=== PATIENT | female | born 1955 | race Hispanic/Latino ===

== ENCOUNTER 2017-02-05 13:51 | Inpatient (IN) | payer MEDICARE, OTHER ==
[2017-02-05 13:59] VITALS: BMI 39.9
[2017-02-05 15:43] LABS: ADD MANUAL DIFF? NO
[2017-02-05 15:48] LABS: BASO # 0.05 K/mm3 (0.0-2.0); BASO % 0.6 % (0.0-3.0); EOS # 0.2 (0.0-0.7); EOS % 1.9 % (1.5-5.0); GRAN # 6.34 (1.4-6.5); GRAN % 72.2 % (50.0-68.0); HEMATOCRIT 41.9 % (36.0-48.0); LYMPH # 1.8 (1.2-3.4); LYMPH % 20.4 % (22.0-35.0); MEAN CELL VOLUME 91.9 fL (80.0-105.0); MEAN CORPUSCULAR HEMOGLOBIN 31.1 pg (25.0-35.0); MEAN CORPUSCULAR HGB CONC 33.9 g/dl (31.0-37.0); MEAN PLATELET VOLUME 10.2 fl (7.0-11.0); MONO # 0.4 (0.1-0.6); MONO % 4.9 % (1.0-6.0); PLATELET COUNT 211 10^3/uL (120.0-450.0); RED CELL DISTRIBUTION WIDTH 13.4 % (11.5-14.5); WHITE BLOOD COUNT 8.8 10^3/ul (4.5-11.0)
--- NOTE | 2017-02-05 16:01 | CT ---
PROCEDURE: CT HEAD WITHOUT CONTRAST. HISTORY: headache/AMS COMPARISON: 05/06/2013 TECHNIQUE: Axial computed tomography images were obtained through the head/brain without intravenous contrast. Radiation dose: Total exam DLP = 677 mGy-cm. This CT exam was performed using one or more of the following dose reduction techniques: Automated exposure control, adjustment of the mA and/or kV according to patient size, and/or use of iterative reconstruction technique. FINDINGS: HEMORRHAGE: No intracranial hemorrhage. BRAIN: No mass effect or edema. No atrophy or chronic microvascular ischemic changes. VENTRICLES: Unremarkable. No hydrocephalus. CALVARIUM: Unremarkable. PARANASAL SINUSES: Unremarkable as visualized. No significant inflammatory changes. MASTOID AIR CELLS: Unremarkable as visualized. No inflammatory changes. OTHER FINDINGS: None. IMPRESSION: Normal CT of the Head.
--- NOTE | 2017-02-05 16:20 | RAD ---
PROCEDURE: CHEST RADIOGRAPH, 1 VIEW HISTORY: AMS COMPARISON: 11/16/2012 FINDINGS: LUNGS: Clear. PLEURA: No pneumothorax or pleural fluid seen. CARDIOVASCULAR: Normal. OSSEOUS STRUCTURES: No significant abnormalities. VISUALIZED UPPER ABDOMEN: Normal. OTHER FINDINGS: None. IMPRESSION: No active disease.
[2017-02-05 16:53] LABS: ALB/GLOB RATIO 1.4 (1.1-1.8); ALKALINE PHOSPHATASE 85 U/L (38-133); ALT/SGPT 45 U/L (7-56); AST/SGOT 29 U/L (15-39); BILIRUBIN,TOTAL 0.5 mg/dL (0.2-1.3); BLOOD UREA NITROGEN 13 mg/dL (7-21); CALCIUM 9.8 mg/dL (8.4-10.5); CARBON DIOXIDE 30 mmol/L (21-33); CHLORIDE 101 mmol/L (98-107); GFR AFRICAN-AMERICAN > 60; GLUCOSE,RANDOM 112 mg/dL (70-110); POTASSIUM 4.2 mmol/L (3.6-5.0); SODIUM 141 mmol/L (132-148); TOTAL PROTEIN 7.1 g/dL (5.8-8.3)
[2017-02-05 17:17] LABS: URINE APPEARANCE CLEAR (CLEAR); URINE BILIRUBIN NEGATIVE (NEGATIVE); URINE BLOOD TRACE-LYSED (NEGATIVE); URINE COLOR YELLOW (YELLOW); URINE GLUCOSE (UA) NEGATIVE (NEGATIVE); URINE KETONE NEGATIVE (NEGATIVE); URINE LEUKOCYTE ESTERASE NEGATIVE Leu/uL (NEGATIVE); URINE PROTEIN NEGATIVE mg/dL (<30 mg/dL); URINE UROBILINOGEN 0.2 E.U./dL (<1 E.U./dL)
[2017-02-05 17:21] LABS: URINE BACTERIA SMALL (NEG); URINE WBC 0 - 2 /hpf (0-6)
--- NOTE | 2017-02-05 18:47 | CARD ---
APPROVED REPORT EKG Measurement Heart [id number] <Conclusion> Sinus tachycardia Low voltage QRS Inferior infarct, age undetermined Abnormal ECG
--- NOTE | 2017-02-05 20:16 | ED PDOC ---
Arrival/HPI - General Historian: Patient, Family <Sharita Locke - Last Filed: 02/05/17 20:13> <Fidencio Peralta - Last Filed: 02/05/17 20:35> - General Chief Complaint: Psychiatric Evaluation Time Seen by Provider: 02/05/17 14:44 - History of Present Illness Narrative History of Present Illness (Text): 02/05/17 20:13 61yr old female with previous psychiatric history presents today with an episode of psychosis/altered mental status. Patient's sisters state that she was with them and suddenly couldn't remember their name and was off into a stair. Family members state that the patient had done this once before about 3 years ago and was treated in the [facility] for psychiatric issue. Family states that the patient is going through a lot of stress and has recently lost her mother for which she was very close to. Patient states she is taking her medications as prescribed. Patient states she doesn't know what happened. There was no loss of consciousness. Patient denies chest pain or shortness of breath. Denies abdominal pain. No nausea or vomiting. Complaining of a slight headache. (Sharita Locke) Past Medical History - Provider Review Nursing Documentation Reviewed: Yes - Travel History Have you recently traveled outside [place] w/in the past 3 mons?: No - Infectious Disease Hx of Infectious Diseases: None - Tetanus Immunization Tetanus Immunization: Unknown - Cardiac Hx Hypertension: Yes - Endocrine/Metabolic Hx Hypothyroidism: Yes - Musculoskeletal/Rheumatological Hx Arthritis: Yes - Psychiatric Hx Anxiety: Yes Hx Depression: Yes Hx Psychosis: Yes Hx Substance Use: No - Past Surgical History Past Surgical History: Non-Contributing - Surgical History Hx Cholecystectomy: Yes Hx Orthopedic Surgery: Yes (KNEE) - Suicidal Assessment Feels Threatened In Home Enviroment: No <Sharita Locke - Last Filed: 02/05/17 20:13> Family/Social History - Physician Review Nursing Documentation Reviewed: Yes Family/Social History: Unknown Family HX Smoking Status: Smoker Hx Alcohol Use: No Hx Substance Use: No Hx Substance Use Treatment: No <Sharita Locke - Last Filed: 02/05/17 20:13> Allergies/Home Meds <Sharita Locke - Last Filed: 02/05/17 20:13> <Fidencio Peralta - Last Filed: 02/05/17 20:35> Allergies/Adverse Reactions: Allergies aspirin Allergy (Verified 02/05/17 14:01) RASH Home Medications: Home Meds Medication Instructions Recorded Confirmed Diltiazem Hydrochloride [Cardizem 120 mg PO BID 11/16/12 11/16/12 Cd] Fluoxetine Hydrochloride [Prozac] 40 mg PO DAILY 11/16/12 11/16/12 Atorvastatin Calcium [Lipitor] 10 mg PO DAILY 11/18/12 11/18/12 Levothyroxine Sodium 0.125 mg PO DAILY 11/18/12 11/18/12 [Levothyroxine] Losartan [Cozaar] 50 mg PO DAILY 11/18/12 11/18/12 Alprazolam [Xanax] 0.5 mg PO BID 05/06/13 05/06/13 Atenolol 50 mg PO DAILY 05/06/13 05/06/13 Furosemide [Lasix] 40 mg PO DAILY 05/06/13 05/06/13 Lisinopril 20 mg PO DAILY 05/06/13 05/06/13 Review of Systems - Review of Systems Constitutional: absent: Fatigue, Fevers Respiratory: absent: SOB, Cough Cardiovascular: absent: Chest Pain, Palpitations Gastrointestinal: absent: Abdominal Pain, Diarrhea, Nausea, Vomiting Genitourinary Female: absent: Dysuria Musculoskeletal: absent: Arthralgias Psychiatric: Anxiety, Depression <Azoia,Sharita Lewis - Last Filed: 02/05/17 20:13> Physical Exam Vital Signs Reviewed: Yes Temperature: Afebrile Blood Pressure: Normal Pulse: Tachycardic Respiratory Rate: Normal Appearance: Positive for: Well-Appearing, Non-Toxic, Comfortable Pain Distress: None Mental Status: Positive for: Alert and Oriented X 3 - Systems Exam Head: Present: Atraumatic Pupils: Present: PERRL Extroacular Muscles: Present: EOMI Conjunctiva: Present: Normal Mouth: Present: Moist Mucous Membranes Neck: Present: Normal Range of Motion Respiratory/Chest: Present: Clear to Auscultation, Good Air Exchange. No: Respiratory Distress, Accessory Muscle Use Cardiovascular: Present: Regular Rate and Rhythm, Normal S1, S2. No: Murmurs Abdomen: No: Tenderness Upper Extremity: Present: Normal ROM Neurological: Present: GCS=15, Speech Normal, Motor Func Grossly Intact, Normal Sensory Function, Gait Normal Skin: Present: Warm, Dry, Normal Color. No: Rashes Psychiatric: Present: Alert, Oriented x 3 <Sharita Locke - Last Filed: 02/05/17 20:13> Vital Signs Temp Pulse Resp BP Pulse Ox 02/05/17 18:25 98 H 18 128/74 95 02/05/17 17:16 108 H 20 117/90 96 02/05/17 17:09 107 H 117 H 96 02/05/17 15:27 16 117/78 95 02/05/17 15:19 98 H 18 115/69 95 02/05/17 14:01 98.3 F 106 H 18 117/71 95 02/05/17 13:51 98.3 F 106 H 18 117/71 96 Medical Decision Making <Sharita Locke - Last Filed: 02/05/17 20:13> <Fidencio Peralta - Last Filed: 02/05/17 20:35> ED Course and Treatment: 02/05/17 20:17 Patient is nontoxic well-appearing in no distress vital signs are stable. pt with period of AMS. now alert oriented. pt states she has been extremely depressed lately. Patient neurologically intact. Prior history of similar event related to psychosis. Patient very tearful in the emergency room crying that she misses her mother. CBC WNL CMP WNL Tylenol WNL Salicylate WNL Alcohol level WNL CT head: wnl Urine drug screen wnl UA; wnl cxr: wnl ekg sinus tachycardia at 106 bpm normal axis normal intervals no ST elevations pt is medically cleared for PES evaluation Patient was seen and evaluated by PES screener: Marla. will admit the patient to psychiatric floor for depression, anxiety Patient sign voluntarily to the psychiatric floor Impression; depression Admit to behavioral health floor (Sharita Locke) - Lab Interpretations Lab Results: 02/05/17 15:25 02/05/17 15:25 Lab Results 02/05/17 17:00: Urine Color Yellow, Urine Appearance Clear, Urine pH 6.0, Ur Specific Aurora <= 1.005, Urine Protein Negative, Urine Glucose (UA) Negative, Urine Ketones Negative, Urine Blood Trace-lysed H, Urine Nitrate Negative, Urine Bilirubin Negative, Urine Urobilinogen 0.2, Ur Leukocyte Esterase Negative , Urine RBC 1 - 3, Urine WBC 0 - 2, Ur Epithelial Cells 3 - 4, Urine Bacteria Small, Urine Opiates Screen Negative, Urine Methadone Screen Negative, Ur Barbiturates Screen Negative, Ur Phencyclidine Scrn Negative, Ur Amphetamines Screen Negative, U Benzodiazepines Scrn Positive H, U Oth Cocaine Metabols Negative, U Cannabinoids Screen Negative 02/05/17 15:25: WBC 8.8, RBC 4.56, Hgb 14.2, Hct 41.9, MCV 91.9, MCH 31.1, MCHC 33.9, RDW 13.4, Plt Count 211, MPV 10.2, Gran % 72.2 H, Lymph % (Auto) 20.4 L, Childress % (Auto) 4.9, Eos % (Auto) 1.9, Baso % (Auto) 0.6, Gran # 6.34, Lymph # 1.8 , Childress # 0.4, Eos # 0.2, Baso # 0.05, Sodium 141, Potassium 4.2, Chloride 101, Carbon Dioxide 30, Anion Gap 14, BUN 13, Creatinine 1.0, Est GFR ( Amer) > 60, Est GFR (Non-Af Amer) 57, Random Glucose 112 H, Calcium 9.8, Total Bilirubin 0.5, AST 29, ALT 45, Alkaline Phosphatase 85, Total Protein 7.1, Albumin 4.1, Globulin 3.0, Albumin/Globulin Ratio 1.4, Salicylates < 1 L, Acetaminophen < 10.0 L, Alcohol, Quantitative < 10 - RAD Interpretation Radiology Orders: 02/05/17 14:55 HEAD W/O CONTRAST [CT] Stat CHEST ONE VIEW [RAD] Stat - Medication Orders Current Medication Orders: Discontinued Medications Alprazolam (Xanax) 0.25 mg PO STAT STA PRN Reason: Protocol Stop: 02/05/17 17:30 Last Admin: 02/05/17 17:37 Dose: 0.25 MG Behavioural Document 02/05/17 17:37 [facility] (Rec: 02/05/17 17:37 [facility] [id number]) Maintenance Maintenance Dose No Nonmedicinal Nonmedicinal Interventions Therapeutic Communication Behavior Behavior for Medication: Anxiety - PA / LOGISTICS MANAGER / Resident Statement AUGUSTUS has reviewed & agrees with the documentation as recorded. AUGUSTUS has examined the patient and agrees with the treatment plan. <Fidencio Peralta - Last Filed: 02/05/17 20:35> Disposition/Present on Arrival - Present on Arrival Any Indicators Present on Arrival: No History of DVT/PE: No History of Uncontrolled Diabetes: No Urinary Catheter: No History of Decub. Ulcer: No History Surgical Site Infection Following: None - Disposition Have Diagnosis and Disposition been Completed?: Yes Disposition Time: 20:33 Patient Plan: Admission <Sharita Locke - Last Filed: 02/05/17 20:13> <Fidencio Peralta - Last Filed: 02/05/17 20:35> - Disposition Diagnosis: Depression Disposition: HOSPITALIZED Condition: FAIR Referrals: Pat Sheehan DO [Primary Care Provider] - Follow up with primary
[2017-02-05] MEDS ORDERED: Alum-Mag Hydrox-Simethicone Susp (30 mL) PO PRN (21:42)
[2017-02-05] MEDS ORDERED: Magnesium Hydroxide Susp 30 ml UD PO PRN (21:42)
[2017-02-06 01:34] VITALS: O2SAT 100
[2017-02-06] MEDS ORDERED: Pantoprazole 40 mg EC Tab PO SCH (07:30)
[2017-02-06] MEDS ORDERED: Levothyroxine 150 MCG TAB PO SCH (07:30)
[2017-02-06] MEDS ORDERED: FLUoxetine Elix 20 MG/5 ML PO SCH (08:00)
[2017-02-06] MEDS: diltiaZEM 120 mg/24 Hours CD Cap PO SCH (09:30)
[2017-02-06 11:09] LABS: CHOLESTEROL 164 mg/dL (130-200); GLUCOSE,FASTING 159 mg/dL (65-110)
[2017-02-06 11:25] LABS: FREE T4 1.24 ng/dL (0.78-2.19)
[2017-02-06 11:39] LABS: THYROID STIMULATING HORMONE 0.45 mIU/mL (0.46-4.68)
--- NOTE | 2017-02-06 13:00 | CON ---
DATE: 02/06/2017 CHIEF COMPLAINT: Transient altered confusion. HISTORY OF PRESENT ILLNESS: This is a 61-year-old woman with past medical history of anxiety and dep ression who has a history of psychosis in the past, has had a recent loss of her mother and according to the family members had been under a lot of stress and had a transient loss of where she was and c ould not remember the name of family members and was staring off in the chair. Currently, she is at her baseline. CT head showed no acute intracranial abnormality, no loss of consciousness. Denies an y change in sense of vision, taste or smell. Denies any headache at this time. No focal weakness in the extremities. Labs were pretty much unremarkable except for TSH is low. She has a U-tox positive for benzos. She is on Cymbalta 30 mg p.o. b.i.d. for depression and also on Seroquel for insomnia 25 mg p.o. at b edtime. She has been having poor sleep over the past few weeks. PAST MEDICAL HISTORY: Depression, anxiety, history of hypertension, hypothyroidism, history of kateryna cystectomy, history orthopedic surgery of her knee. REVIEW OF SYSTEMS: A 14-point review of systems is negative except for the HPI. MEDICATIONS: Reviewed via nurse's reconciliation sheet. ALLERGIES: ALLERGIC TO ASPIRIN. FAMILY HISTORY: Noncontributory. SOCIAL HISTORY: No illicit drug use, smoking or ETOH abuse. PHYSICAL EXAMINATION: VITAL SIGNS: Temperature 97.3, pulse rate of 102, blood pressure 108/61, respiratory rate of 20, oxy gen saturation 100% on room air. GENERAL: The patient is sitting up in bed in no acute distress. HEENT: Atraumatic, normocephalic. PERRLA. Extraocular muscles intact. NECK: Supple, no JVD, no adenopathy noted. LUNGS: Clear to auscultation. No adventitious sounds. HEART: S1, S2, normal rate and rhythm. No murmurs, rubs, or gallops. ABDOMEN: Soft, nontender, nondistended. Bowel sounds present. EXTREMITIES: No clubbing, no cyanosis. Peripheral pulses 2+ bilaterally. NEUROLOGIC: The patient has a flat affect. She is alert, oriented to person, place, month and year. Speech is fluent, without any errors. Cranial nerves II through XII are intact. MOTOR: Moves all extremities equally. Toes downgoing bilaterally. Normal tone, normal bulk of muscle. No pronator drift seen. DTRs are 2+ throughout and 1 at the ankl es. SENSORY: Light touch, pinprick, proprioception, vibration intact. COORDINATION: Ushrli-dg-tyky intact. Gait is deferred for now. LABORATORY DATA: Sodium is 141, potassium 4.2, chloride 101, carbon dioxide 30, BUN of 13, creatinin e 1. Random glucose 112. ASSESSMENT AND PLAN: This is a 61-year-old woman with history of psychosis in the past, admitted to the psychiatric unit for anxiety and depression from recent loss of her mother. Has been having poor sleep over time. Had transient altered mental status where she could not remember family members' n bijal and was staring off in the chair. She also had a flat affect and she is being managed for depre ssion and anxiety, currently in the psychiatric unit. there is a transient reduction in her sy stolic blood pressure over time. Her altered mental status could be transient stress induced affect with superimposed underlying transient cerebral hypoperfusion to the brain causing her change in ment al status. Currently, she is back to her baseline. She is depressed and anxious. At this time, mariah mmend: 1. Continue with Xanax for underlying anxiety and Cymbalta 30 mg p.o. daily for depression and Seroq uel 25 mg p.o. at bedtime for insomnia. Her CT head showed no acute intracranial abnormality. Ana Luisa nue current present psychiatric management. No further neurological workup needed at this time. Basim l sign off. Bartolome Macedo MD cc: [id number] TT: 02/06/2017 12:59:38 Confirmation # [id number] Dictation # [id number] feroz
[2017-02-06 13:50] LABS: FREE T4 1.32 ng/dL (0.78-2.19); T4 11.2 ug/dL (5.5-11.0)
--- NOTE | 2017-02-06 13:55 | CON ---
DATE: 02/06/2017 HISTORY OF PRESENT ILLNESS: The patient is seen in room 515, bed 1. The patient is admitted through the Emergency Room on 02/05/2017 for episode of psychosis, depression, altered mental status. Adalberto abarca to the ER triage and ER evaluation note, patient had a sudden onset of forgetfulness and unable to remember the names of the sister. According to the family members, patient had these similar episod es a few years ago, was treated in [facility] for above issues. The patient's 13-sys tem review was positive for stress, positive for forgetfulness, positive for psychosis, positive for altered mental status. The patient stated that she recently lost her mother. The patient appears to be compliant with medication. The patient has no recollection of the events which happened yesterda y. The patient also was noted to have an erratic behavior, hyperventilating. The patient came to the Em ergency Room by EMS [facility]. REVIEW OF SYSTEMS: A 13-system review was done. Pertinent positive and negative dictated above. CODE STATUS: Full code. LIVING WILL AND ADVANCED DIRECTIVE: None. ALLERGIES: ASPIRIN. HEIGHT: 5 feet 5 inches. WEIGHT: 240 pounds. BODY MASS INDEX: 40. HOME MEDICATIONS: 1. Motrin 800 t.i.d. p.r.n. 2. Synthroid 150 mcg. 3. Os-Victor Manuel with vitamin D twice a day. 4. Ambien 10 mg at bedtime p.r.n. 5. Xanax 0.5 or 1 mg t.i.d. p.r.n. 6. Lisinopril 20 mg daily. 7. Cardizem-CD 240 or 120 mg. 8. Lipitor 10 mg daily. 9. Cymbalta 30 mg twice a day. SOCIAL HISTORY: Positive for smoking. Denies alcohol. Denies communicable transmissible disease. Denies hepatitis A, B, C. Denies HIV. Denies any high risk sexual behavior. Denies any communicabl e transmissible disease. MENSTRUAL HISTORY: Postmenopausal. The patient denies being . FAMILY HISTORY: Positive for father dying of lung cancer, mother dying of kidney cancer. PAST MEDICAL AND SURGICAL HISTORY: History of hypothyroidism, history of hypertension, history of pr ediabetes, history of obesity, history of cholecystectomy, history of knee surgeries, history of elma st cyst surgeries, history of anxiety disorder, history of dyslipidemia, history of depression, histo ry of anxiety, history of atypical chest pain, history of hypertensive disease, history of insomnia, history of obesity. The patient's past medical history is also significant for hypertension, hypothy roidism, history of arthritis, history of anxiety, depression, psychosis; history of cholecystectomy, history of knee surgery, history of depression and anxiety. The patient's past medical history is significant for history of fatty breast parenchyma, history of hypertensive cardiovascular disease, history of morbid obesity with elevated body mass index of 40, h istory of anxiety, history of depression, history of atypical chest pain, history of nicotine depende nce. PHYSICAL EXAMINATION: GENERAL: The patient is seen in [facility], bed 1. The patient is seen lying in the bed and patient was se en and examined sitting up and ambulating. VITAL SIGNS: T-max 98.3, heart rate 90 to 102 to 107, respiration 20, blood pressure ranging from 14 4/90 to 108/61, respirations 20, O2 sat 100%. HEAD: Normocephalic, atraumatic. HEENT: Shows pink conjunctivae, anicteric sclerae. No oropharyngeal lesion. NECK: No neck rigidity. CHEST: Symmetrical. LUNGS: Shows no rales, crackles, or wheezing. CARDIOVASCULAR: S1, S2, regular rhythm. ABDOMEN: Obese, positive bowel sounds, healed surgical scar of cholecystectomy. GENITALIA: Female. RECTAL: Deferred. EXTREMITIES: Shows no pitting edema, no calf tenderness, no Homans signs. MUSCULOSKELETAL: Shows an elevated body mass index of 20. Exam shows obesity with body mass index o f 40. NEUROLOGIC: The patient is alert, awake, responsive, oriented x 3. Cranial nerves II-XII intact. GAIT: Independent. VASCULAR: Palpable pulses. PSYCHIATRIC: Positive for anxiety, positive for psychosis. DIAGNOSTICS: CBC is within normal limit except for granulocytes of 72. Chemistry shows glucose of 1 12, 159. LFTs, ammonia is normal. Cholesterol 164, LDL 82, HDL 50. TSH panel is not available at [facility]. Urine is positive for microscopic blood and small bacteria. Urine drug screen positive for benzos. Alcohol quantitative negative. Acetaminophen salicylate negative. Chest x-ray has no active disease. CT of the head is normal head CT. EKG was done, shows sinus rhythm, sinus tachycardia, age indeterm inate inferior infarct. The patient was seen in the Emergency Room by the physician assistant bookkeeper. Does not seem that the patien t was seen by ____. The patient was also by Dr. Peralta and patient was cleared for admission. IMPRESSION AND PLAN: 1. Acute exacerbation of anxiety, depression, and psychosis with episode of confusion and forgetfuln ess. 2. Hypertension. 3. Tachycardia. 4. Morbid obesity. 5. History of hypertension, hypothyroidism, history of prediabetes, history of morbid obesity, histo ry of nicotine dependence. 6. Granulocytosis. 7. History of prediabetes. 8. Microscopic hematuria and bacteriuria. 9. History of obesity. 10. History of anxiety, history of hypertension, history of hypothyroidism, history of dyslipidemia, history of depression. PLAN: At this time, the patient is ordered hemoglobin A1c, thyroid panel, B12, folate, vitamin D hyd carlos, RPR. CURRENT MEDICATIONS: 1. Ambien 5 mg at bedtime p.r.n. 2. Cardizem-CD 120 mg daily. 3. Cymbalta 30 mg twice a day. 4. Geodon 20 mg 3 times a day p.r.n. 5. Lipitor 10 mg daily. 6. Milk of magnesia and Maalox p.r.n. 7. Nicotine patch started at 14 mg daily. 8. Protonix 40 mg twice a day, which will be changed to once a day. The patient is on GI prophylaxi s with Protonix 40 mg daily. 9. The patient will be started on DVT prophylaxis. 10. The patient is on Seroquel 25 at bedtime p.r.n. 11. Synthroid 150 mcg with breakfast, which will be adjusted depending upon the thyroid panel availa ble. 12. Xanax 1 mg 3 times a day. 13. Zestril 20 mg daily. The patient has been ordered a regular diet by the psychiatrist, which will be changed to moderate ca rbohydrate, low cholesterol diet. The patient has been updated about her condition, diagnosis, treat ment plan, management plan, etc., at length. Has been updated. The patient will be closely monitore d while patient is on the psychiatry floor. The patient's further management will be dependent upon the patient's clinical condition, hemodynamic status, and as per patient response to therapeutic inte rvention, as per patient's diagnostic test results and as per recommendation by other physicians invo lved in the care of the patient. Time spent in the entire management and consultation an review of data and review of diagnostic thera peutic intervention and review of all the patient care data, time spent is more than 45 minutes. Dictated and electronically signed, not read. Warren Leung MD cc: [id number] TT: 02/06/2017 13:54:36 Confirmation # [id number] Dictation # [id number]
--- NOTE | 2017-02-06 16:34 | PCM.PSYCH ---
Initial Psychiatric Evaluation - Initial Psychiatric Evaluation Type of Admission: Voluntary Legal Status: Capacity (pt has capacity to sign consent for treatment) Chief Complaint (in patient's own words): "I was stressed out, I did not remember where I was, I have those moments...." Patient's Reaction to Hospitalization: pt was admitted to the psych unit for evaluation of AMS, possible brief psychotic episode, pt did not remember where she was, did not remember what was the name of her sisters, tried to run away from the restaurant, pt also was depressed, hopeless. History of Present Illness and Precipitating Events: shortly pt is 61yo Female, self reported h/o one psychiatric admission [place] [facility] [place] brief psychotic episode, currently under care of [facility], self reported h/o depression and anxiety, was brought in by her sisters to ED yesterday because pt had episode when pt presented to be confused, did not know where she was, tried to run out of the restaurant. Pt needs to have further evaluation and stabilization, medications adjustment, collaterals. Pt was seen at the treatment team meeting, presented to have acceptable personal hygiene, fair ADLs. pt reported she "lost it, I had a nervous brake down" three years ago when her mother needed to have some text for carotid arthery and her transportation company did not pick her up on time, pt said that she was agitated and "very angry, I did not feel well", in order to "cool down", pt drove to the coffee shop and "bought some coffee", then pt said "instead of screaming, yelling and let it out I inverted it inside of me". pt said after that pt had episodes when she would not remember where she is, does "staring at people", pt said she was brought to the [facility] and staid there for three days. "they did not diagnosed me with anything, just let me go", now pt is under care of her psychiatrist and therapist at [facility]. pt reported being compliant with medications. Pt said that she was stressed out lately, pt's mother in November 2016, since that time "I lost my purpose in life, I am not , I do not have kids", pt said she was feeling hopeless and helpless but denied thoughts of harming self or others. 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 Pt said yesterday "two of my sisters took me to the restaurant", pt said that she had one of "those moments, I just stared at them, I didn't know were I was, that episode was longer than usual" after pt was brought in to the ED. at the moment of the interview pt said "I feel normal myself". pt denied v/a/t hallucinations, denied paranoid ideation. pt reported to feel anxious, has panic attacks. denied using alcohol, denied drugs, but reported to smoke about 7cig a day, counseling provided, nicotine patch as well. Smoking Cessation Counseling: The patient was counseled as to the multiple risks to his/her health from continued use of tobacco products. It was explained that continuing to smoke may lead to multiple short and fpc negative health consequences, including but not limited to mouth/esophageal /lung cancer, COPD, and heart disease. He/she states he/she understands these risks, and also understands the options and resources available to him/her to help him/her stop smoking. Nicotine replacement therapy, local hotlines, and local resources were discussed as viable options for helping him/her stop his/her tobacco use. The total time spent counseling the patient regarding tobacco cessation was 3 minutes past psych h/o: one admission three years ago for the similar episode, denied suicidal attempts. pt denied family h/o mental illness. pt reported to have HTN, dyslipidemia pharmacy was called quick check [phone] thorazine 100mg hs cymbalta 30mg po bid ambien 10mg po hs xanax 1mg po tid pt was seen by neurology team pt was seen by medical team ct of the head WNL 02/05/17 15:25 02/05/17 15:25 Lab Results 02/06/17 13:15: Free T4 1.32, Thyroxine (T4) 11.2 H 02/06/17 10:51: Fasting Glucose 159 H, Triglycerides 160, Cholesterol 164, LDL Cholesterol Direct 82, HDL Cholesterol 50, Free T4 1.24, TSH 3rd Generation 0.45 L 02/06/17 09:20: Ammonia < 9 L 02/05/17 17:00: Urine Color Yellow, Urine Appearance Clear, Urine pH 6.0, Ur Specific [place] <= 1.005, Urine Protein Negative, Urine Glucose (UA) Negative, Urine Ketones Negative, Urine Blood Trace-lysed H, Urine Nitrate Negative, Urine Bilirubin Negative, Urine Urobilinogen 0.2, Ur Leukocyte Esterase Negative , Urine RBC 1 - 3, Urine WBC 0 - 2, Ur Epithelial Cells 3 - 4, Urine Bacteria Small, Urine Opiates Screen Negative, Urine Methadone Screen Negative, Ur Barbiturates Screen Negative, Ur Phencyclidine Scrn Negative, Ur Amphetamines Screen Negative, U Benzodiazepines Scrn Positive H, U Oth Cocaine Metabols Negative, U Cannabinoids Screen Negative 02/05/17 15:25: WBC 8.8, RBC 4.56, Hgb 14.2, Hct 41.9, MCV 91.9, MCH 31.1, MCHC 33.9, RDW 13.4, Plt Count 211, MPV 10.2, Gran % 72.2 H, Lymph % (Auto) 20.4 L, [place] % (Auto) 4.9, Eos % (Auto) 1.9, Baso % (Auto) 0.6, Gran # 6.34, Lymph # 1.8 , Shannon # 0.4, Eos # 0.2, Baso # 0.05, Sodium 141, Potassium 4.2, Chloride 101, Carbon Dioxide 30, Anion Gap 14, BUN 13, Creatinine 1.0, Est GFR ( Amer) > 60, Est GFR (Non-Af Amer) 57, Random Glucose 112 H, Calcium 9.8, Total Bilirubin 0.5, AST 29, ALT 45, Alkaline Phosphatase 85, Total Protein 7.1, Albumin 4.1, Globulin 3.0, Albumin/Globulin Ratio 1.4, Salicylates < 1 L, Acetaminophen < 10.0 L, Alcohol, Quantitative < 10 Vital Signs Temp Pulse Resp BP Pulse Ox 02/06/17 09:30 102 H 108/61 02/06/17 09:05 102 H 10802/06/17 07:25 97.3 F L 102 H 20 108/61 02/05/17 22:00 98.5 F 107 H 20 144/90 100 02/05/17 21:52 12 02/05/17 21:01 90 16 114/63 96 02/05/17 18:25 98 H 18 128/74 95 02/05/17 17:16 108 H 20 117/90 96 02/05/17 17:09 107 H 117 H 96 02/05/17 15:27 16 117/78 95 02/05/17 15:19 98 H 18 115/69 95 02/05/17 14:01 98.3 F 106 H 18 117/71 95 02/05/17 13:51 98.3 F 106 H 18 117/71 96 Current Medications: Active Medications Generic Name Dose Route Start Last Admin Trade Name Freq PRN Reason Stop Dose Admin Acetaminophen 650 mg 02/05/17 21:42 Tylenol 325mg Tab PO Q6H PRN Pain, Mild (1-3) Al Hydrox/Mg Hydrox/Simethicone 30 ml 02/05/17 21:42 Maalox Plus 30 Ml PO DAILY PRN Upset Stomach Alprazolam 1 mg 02/06/17 08:00 02/06/17 09:05 Xanax PO 1 mg 0800,1500,2200 [facility] Administration Protocol Atorvastatin Calcium 10 mg 02/06/17 17:00 Lipitor PO DIN [facility] Diltiazem HCl 120 mg 02/06/17 08:00 02/06/17 09:30 Cardizem Cd PO 120 mg DAILY [facility] Administration Duloxetine HCl 30 mg 02/06/17 08:00 02/06/17 09:05 Cymbalta PO 30 mg BID [facility] Administration Heparin Sodium (Porcine) 5,000 units 02/06/17 14:00 Heparin SC Q8 [facility] Protocol Levothyroxine Sodium 150 mcg 02/06/17 07:30 02/06/17 09:04 Synthroid PO 150 mcg ACB [facility] Administration Lisinopril 20 mg 02/06/17 08:00 02/06/17 09:05 Zestril PO 20 mg DAILY [facility] Administration Magnesium Hydroxide 30 ml 02/05/17 21:42 Milk Of Magnesia PO DAILY PRN Constipation Nicotine 1 patch 02/06/17 12:30 Nicoderm Cq TD DAILY [facility] Pantoprazole Sodium 40 mg 02/07/17 08:00 Protonix Ec Tab PO DAILY [facility] Quetiapine Fumarate 25 mg 02/05/17 21:44 02/05/17 22:40 Seroquel PO 25 mg HS PRN Administration Insomnia Protocol Ziprasidone 20 mg 02/05/17 23:12 Geodon Cap PO TID PRN Psychosis Protocol Zolpidem Tartrate 5 mg 02/05/17 23:12 02/05/17 23:31 Ambien PO 5 mg HS PRN Administration Insomnia Protocol Past Psychiatric History - Past Psychiatric History Previous Treatment History: Inpatient Prior Professional Help: see HPI Prior Psychiatric Treatment: see HPI At what hospital: see HPI Duration: see HPI Nature of Treatment: see HPI Explanation of prior treatment: see HPI History of Abuse: see HPI denied History of ETOH/Drug Use: see HPI History of Family Illness: see HPI Pertinent Medical Hx (Current Medical&Sleep Prob, Allergies): Allergies Allergy/AdvReac Type Severity Reaction Status Date / Time aspirin Allergy RASH Verified 02/06/17 01:47 Diltiazem Hydrochloride [Cardizem Cd] 120 mg PO DAILY 11/16/12 Atorvastatin Calcium [Lipitor] 10 mg PO DAILY 11/18/12 Alprazolam [Xanax] 1 mg PO TID 05/06/13 Lisinopril 20 mg PO DAILY 05/06/13 Ambien 10 mg PO HS PRN 02/05/17 Calcium 500-Vit D3 600 Tablet 1 tab PO BID 02/05/17 DULoxetine [Cymbalta] 30 mg PO BID 02/05/17 Levothyroxine [Synthroid] 150 mcg PO DAILY 02/05/17 Motrin Tab 800 mg PO TID PRN 02/05/17 Review of Systems - Review of Systems Systems not reviewed;Unavailable: Acuity of Condition - EENT Eyes: As Per HPI Ears: As Per HPI Nose/Mouth/Throat: As Per HPI - Breasts Breasts: As Per HPI - Cardiovascular Cardiovascular: As Per HPI - Respiratory Respiratory: As Per HPI - Gastrointestinal Gastrointestinal: As Per HPI - Genitourinary Genitourinary: As Per HPI - Reproductive: Female Reproductive:Female: As Per HPI - Menstruation Menstruation: As Per HPI - Musculoskeletal Musculoskeletal: As Par HPI - Integumentary Integumentary: As Per HPI - Neurological Neurological: As Per HPI - Psychiatric Psychiatric: As Per HPI - Endocrine Endocrine: As Per HPI - Hematologic/Lymphatic Hematologic: As Per HPI Mental Status Examination - Personal Presentation Personal Presentation: Looks older than stated age - Affect Affect: Flat - Motor Activity Motor Activity: Calm - Reliability in Providing Information Reliability in Providing Information: Fair - Speech Speech: Disorganized (mildly) - Mood Mood: Depressed, Anxious - Formal Thought Process Formal Thought Process: No Impairment (denied) - Obsessions/Compulsions Obsessions: None Compulsions: None - Cognitive Functions Orientation: Person, Place, Situation, Time Sensorium: Alert Attention/Concentration: Easily distracted Abstract Thinking: [place] Estimate of Intelligence: Average Judgement: Intact, as evidence by: Insight regarding need for hospitalization - Risk Risk: Self-mutilation, Diminished functioning - Strength & Assets Inventory Strength & Assets Inventory: Family support, Skills, Cooperative, Other (no drugs, relatively good health) DSM 5 DX - DSM 5 DSM 5 Diagnosis: brief psychotic episode mdd yoandy r/o ptsd r/o adjustment d/o - Recommended/Plan of Treatment Treatment Recommendations and Plan of Treatment: milieu/structure/supportive therapy will resume thorazine 100mg hs for psychosis (pt was on it) will decrease cymbalta to 40mg daily (pt was on 60mg), as per pt's request will continue xanax 1mg po tid for anxiety will continue ambien 10mg hs for insomnia medical meds will be continued medical consult appreciated neurology consult appreciated SW evaluation will monitor closely Projected ELOS: 5days Prognosis: fair Discharge Plan and Discharge Criteria: Pt will be not depressed or manic, will be more hopeful, will be not psychotic or anxious, will be tolerating medications well, will not have major side effects, will be able to function, will not pose threat to self or others. - Smoking Cessation Smoking Cessation Initiated: Yes
[2017-02-06 17:29] LABS: FOLATE 11.5 ng/mL
[2017-02-07] MEDS ORDERED: Levothyroxine 150 MCG TAB PO SCH (07:30)
[2017-02-07] MEDS: diltiaZEM 120 mg/24 Hours CD Cap PO SCH (08:00)
[2017-02-07] MEDS: Pantoprazole 40 mg EC Tab PO SCH (09:02)
[2017-02-07] MEDS: Levothyroxine 125 MCG TAB PO SCH (09:02)
--- NOTE | 2017-02-07 11:07 | PCM.PYCHPN ---
Psychiatric Progress Note - Psychiatric Progress Note Patient seen today, length of contact: 30min Patient Chief Complaint: "I tolerate celexa well.." Problems Identified/Issues Discussed: Suicide/ homicide prevention, past psychiatric h/o, current psychiatric symptoms , medical problems, risk/benefits and alternatives of medications, medications compliance, coping strategies, substance abuse h/o, relapse prevention, importance of follow up with psychiatrist and therapist, discharge plan. Medical Problems: hypertension, prediabetis, hyperthyroidism, obesity see medical team note for more detailed information Diagnostic Results: 02/05/17 15:25 02/05/17 15:25 Lab Results 02/06/17 13:15: Hemoglobin A1c 6.4, Fructosamine 247, Vitamin B12 768, 25-OH Vitamin D Total 29.0 L, Folate 11.5, Free T4 1.32, Thyroxine (T4) 11.2 H 02/06/17 10:51: Fasting Glucose 159 H, Triglycerides 160, Cholesterol 164, LDL Cholesterol Direct 82, HDL Cholesterol 50, Free T4 1.24, TSH 3rd Generation 0.45 L 02/06/17 10:30: RPR Nonreactive 02/06/17 09:20: Ammonia < 9 L 02/05/17 17:00: Urine Color Yellow, Urine Appearance Clear, Urine pH 6.0, Ur Specific [place] <= 1.005, Urine Protein Negative, Urine Glucose (UA) Negative, Urine Ketones Negative, Urine Blood Trace-lysed H, Urine Nitrate Negative, Urine Bilirubin Negative, Urine Urobilinogen 0.2, Ur Leukocyte Esterase Negative , Urine RBC 1 - 3, Urine WBC 0 - 2, Ur Epithelial Cells 3 - 4, Urine Bacteria Small, Urine Opiates Screen Negative, Urine Methadone Screen Negative, Ur Barbiturates Screen Negative, Ur Phencyclidine Scrn Negative, Ur Amphetamines Screen Negative, U Benzodiazepines Scrn Positive H, U Oth Cocaine Metabols Negative, U Cannabinoids Screen Negative 02/05/17 15:25: WBC 8.8, RBC 4.56, Hgb 14.2, Hct 41.9, MCV 91.9, MCH 31.1, MCHC 33.9, RDW 13.4, Plt Count 211, MPV 10.2, Gran % 72.2 H, Lymph % (Auto) 20.4 L, [place] % (Auto) 4.9, Eos % (Auto) 1.9, Baso % (Auto) 0.6, Gran # 6.34, Lymph # 1.8 , [place] # 0.4, Eos # 0.2, Baso # 0.05, Sodium 141, Potassium 4.2, Chloride 101, Carbon Dioxide 30, Anion Gap 14, BUN 13, Creatinine 1.0, Est GFR ( Amer) > 60, Est GFR (Non-Af Amer) 57, Random Glucose 112 H, Calcium 9.8, Total Bilirubin 0.5, AST 29, ALT 45, Alkaline Phosphatase 85, Total Protein 7.1, Albumin 4.1, Globulin 3.0, Albumin/Globulin Ratio 1.4, Salicylates < 1 L, Acetaminophen < 10.0 L, Alcohol, Quantitative < 10 Vital Signs Temp Pulse Resp BP Pulse Ox 02/07/17 08:00 97 F L 107 H 17 115/69 02/07/17 07:35 97.9 F 107 H 20 115/69 02/06/17 16:36 117 H 114/75 02/06/17 09:30 102 H 108/61 02/06/17 09:05 102 H 108/61 02/06/17 07:25 97.3 F L 102 H 20 108/61 02/05/17 22:00 98.5 F 107 H 20 144/90 100 02/05/17 21:52 12 02/05/17 21:01 90 16 114/63 96 02/05/17 18:25 98 H 18 128/74 95 02/05/17 17:16 108 H 20 117/90 96 02/05/17 17:09 107 H 117 H 96 02/05/17 15:27 16 117/78 95 02/05/17 15:19 98 H 18 115/69 95 02/05/17 14:01 98.3 F 106 H 18 117/71 95 02/05/17 13:51 98.3 F 106 H 18 117/71 96 DSM 5 Symptoms Update: shortly pt is 61yo Female, self reported h/o one psychiatric admission to [facility] in [place] for brief psychotic episode, currently under care of [facility], self reported h/o depression and anxiety, was brought in by her sisters to ED yesterday because pt had episode when pt presented to be confused, did not know where she was, tried to run out of the restaurant. Pt needs to have further evaluation and stabilization, medications adjustment, collaterals. Pt was seen next to the nursing station, presented to have acceptable personal hygiene, fair ADLs. pt reported that she slept well last night, pt said that she tolerates Celexa well, no side effects, pt is in the tapering dose of cymbalta. pt said that she did not have any episodes of confusions. pt reported that her mood is stable. pt was seen by medical team, discussed with today, tachycardia mostly related to thyroid problems. Cardiology team will f/u on this pt. pt requested to be discharged tomorrow. pt reported to feel anxious, has panic attacks. DSM 5 Diagnosis: brief psychotic episode mdd yoandy r/o ptsd r/o adjustment d/o Medication Change: Yes (cymbalta decreased) Medical Record Reviewed: Yes Consults ordered or reviewed: medical consult appreciated neurology consult appreciated cardiology consult called Mental Status Examination - Cognitive Function Orientation: Person, Place, Situation, Time Memory: Intact Attention: Poor Concentration: Poor Association: WNL Fund of Knowledge: WNL - Mood Mood: Depressed ("I feel better"), Anxious - Affect Affect: Constricted (but more reactive, mood congruent) - Speech Speech: Appropriate - Formal Thought Process Formal Thought Process: No Impairment (denied) - Suicidal Ideation Suicidal Ideation: No - Homicidal Ideation Homicidal Ideation: No Goal/Treatment Plan - Goal/Treatment Plan Need for Continued Stay: Remain at risks for inpatient hospitalization, Severe depression anxiety, Discharge may exacerbated symptoms, Severe functional impairment Progress Toward Problem(s) and Goals/Treatment Plan: milieu/structure/supportive therapy will resume thorazine 100mg hs for psychosis (pt was on it) will decrease cymbalta to 20mg daily (pt was on 60mg), as per pt's request celexa was initiated yesterday 10mg daily, today will be increased to 20mg will continue xanax 1mg po tid for anxiety will continue ambien 10mg hs for insomnia medical meds will be continued medical consult appreciated neurology consult appreciated SW evaluation will monitor closely Estimated Date of D/C: 02/08/17 (will monitor closely) - Smoking Cessation Smoking Cessation Initiated: Yes
--- NOTE | 2017-02-07 11:29 | PN ---
DATE: 02/07/2017 The patient is seen in the group therapy. Overnight nurse's notes were reviewed. The patient was noted to be depressed after her mother 3 months ago. The patient appeared to be depressed. The patient took medicine, slept well overnight. No other events have been documented. PHYSICAL EXAMINATION: VITAL SIGNS: T-max 97.9, heart rate 107, blood pressure 115/69, respirations 20 , O2 sat is 96-100%. HEAD: Normocephalic, atraumatic. HEENT: Shows pink conjunctivae, anicteric sclerae. No oropharyngeal lesion. NECK: No neck rigidity. CHEST: Symmetrical. LUNGS: Shows no rales, crackles, or wheezing. CARDIOVASCULAR: Shows S1, S2, regular rhythm. ABDOMEN: Soft, positive bowel sounds. GENITALIA: Female. RECTAL: Deferred. EXTREMITIES: Shows no pitting edema, no calf tenderness, no Homans signs. NEUROLOGIC: The patient is alert, awake, responsive. Oriented x 3. MUSCULOSKELETAL: Shows body mass index is elevated with a BMI of almost 40. NEUROLOGIC: The patient is alert, awake, responsive; is able to move upper and lower extremities without assistance. GAIT: Independent. VASCULAR: Palpable pulses. PSYCHIATRIC: As per psychiatrist's note. DIAGNOSTICS: The patient's diagnostics since yesterday were reviewed. Hemoglobin A1c of 6.4, fructosamine 247, B12 768, vitamin D is low at 29. The patient's T4 was a little elevated at 11.2 and TSH is suppressed at 0.45; this is suggestive of possible subclinical hyperthyroidism, probably because of the higher dose of Synthroid which has been adjusted. Drug screen was negative. RPR is negative. IMPRESSION: 1. Acute exacerbation of anxiety, depression, psychosis with episode of confusion and forgetfulness (resolving). 2. Asymptomatic tachycardia probably secondary to subclinical hyperthyroidism secondary to high Synthroid dose. 3. Hypertension. 4. Morbid obesity. 5. History of hypertension, hypothyroidism, history of prediabetes, history of morbid obesity, history of nicotine addiction. 6. Granulocytosis. 7. Microscopic hematuria, bacteriuria. 8. History of anxiety. 9. Morbid obesity with elevated body mass index of 40. 10. Granulocytosis. 11. Hypovitaminosis D. 12. Prediabetes with hemoglobin A1c of 6.4. 13. History of psychosis, anxiety and depression. 14. Questionable insomnia. 15. Transient acute stress reaction. 16. History of dyslipidemia, hypertension, hypothyroidism, nicotine dependence. 1. Acute exacerbation of anxiety, depression, and psychosis with episode of confusion and forgetfulness. 2. Hypertension. 3. Tachycardia. 4. Morbid obesity. 5. History of hypertension, hypothyroidism, history of prediabetes, history of morbid obesity, history of nicotine dependence. 6. Granulocytosis. 7. History of prediabetes. 8. Microscopic hematuria and bacteriuria. 9. History of obesity. 10. History of anxiety, history of hypertension, history of hypothyroidism, history of dyslipidemia, history of depression. CURRENT MEDICATIONS: At this time, patient is presently on: 1. Ambien 10 mg at bedtime. 2. The patient's Cardizem is increased to Cardizem-CD 180 mg daily. 3. Celexa 10 mg daily. 4. Cymbalta 40 mg daily. 5. Geodon 20 mg p.o. t.i.d. p.r.n. 6. Lipitor 10 mg daily. 7. Maalox and milk of magnesia p.r.n. 8. Nicotine patch 14 mg daily. 9. Protonix 40 mg daily. 10. Synthroid 125 mcg daily, which is decreased from the dose of 150 mcg. 11. The patient is on Thorazine 100 mg at bedtime. 12. Tylenol 650 q. 6 p.r.n. 13. Vitamin D3 2000 units daily. 14. Xanax 1 mg 3 times a day. 15. Zestril 20 mg daily. The patient will be ordered an echocardiogram for evaluation of tachycardia and LV function. The patient will be ordered a Holter monitor. The patient will be ordered an echo, a Doppler and Holter monitor. The patient's Cardizem-CD increased to 180 mg. The patient's Synthroid is adjusted down to 125 mcg. The patient at present will be followed closely with psychiatrist. Will make further recommendation depending upon the patient's clinical condition, hemodynamic status, and as per patient's response to therapeutic intervention. Dictated and electronically signed; not read. Warren Leung MD cc: [id number] TT: 02/07/2017 11:28:24 Confirmation # [id number] Dictation # [id number] mn KELVIN
[2017-02-07] MEDS ORDERED: diltiaZEM 180 mg/24 Hours CD Cap PO SCH (11:30)
--- NOTE | 2017-02-07 17:02 | CARD ---
APPROVED REPORT EXAM: Two-dimensional and M-mode echocardiogram with Doppler and color Doppler. INDICATION DEPRESSION/LVFX 2D DIMENSIONS Left Atrium (2D)3.8 (1.6-4.0cm)IVSd1.2 (0.7-1.1cm) LVDd4.0 (3.9-5.9cm)PWd1.2 (0.7-1.1cm) LVDs2.7 (2.5-4.0cm)FS (%) 32.8 % LVEF (%)61.7 (>50%) M-Mode DIMENSIONS Aortic Root2.70 (2.2-3.7cm)Aortic Cusp Exc.1.60 (1.5-2.0cm) Aortic Valve AoV Peak Ajcqrbyu789.0cm/Radha Peak GR.9mmHg Mitral Valve MV E Cushbhuc47.6cm/sMV A Djtfhgwv22.3cm/sE/A ratio0.7 TDI Lateral E' Peak V6.73cm/sMedial E' Peak V6.63cm/sE/Lateral E'9.7 E/Medial E'9.9 Pulmonary Valve PV Peak Zlimnees64.9cm/sPV Peak Grad.3mmHg Tricuspid Valve TR Peak Pbdnfzly351re/sRAP [id number] Peak Gr.18mmHg [id number] LEFT VENTRICLE The left ventricle is normal size. There is borderline concentric left ventricular hypertrophy. The left ventricular function is normal. The left ventricular ejection fraction is within the normal range. There is normal LV segmental wall motion. Transmitral Doppler flow pattern is Grade I-abnormal relaxation pattern. RIGHT VENTRICLE The right ventricle is normal size. There is normal right ventricular wall thickness. The right ventricular systolic function is normal. ATRIA The left atrium size is normal. The right atrium size is normal. AORTIC VALVE The aortic valve is normal in structure. No aortic regurgitation is present. MITRAL VALVE The mitral valve is normal in structure. There is no mitral valve regurgitation noted. TRICUSPID VALVE There is no pulmonary hypertension. GREAT VESSELS The aortic root is normal in size. PERICARDIAL EFFUSION There is a small loculated anterior pericardial effusion. <Conclusion> The left ventricle is normal size. There is borderline concentric left ventricular hypertrophy. The left ventricular function is normal. The left ventricular ejection fraction is within the normal range. There is normal LV segmental wall motion. Transmitral Doppler flow pattern is Grade I-abnormal relaxation pattern.
--- NOTE | 2017-02-08 03:08 | CON ---
DATE: 02/07/2017 LOCATION: The patient in room 508, bed 1. REASON FOR CONSULTATION: Hypertension, resting sinus tachycardia, hypothyroidism. HISTORY OF PRESENT ILLNESS: This is a 61-year-old woman with past medical history of Hypertension, anxiety, depression and psychosis. She went through recent loss of her mother. According to a family member, she has been under too much pressure. The patient denies chest pain, shortness of breath, palpitation. She is here at [facility]. She had echo and stress test 06/2016 that she was told to be normal. She also states that her heart rate was always fast. PAST MEDICAL FOR HISTORY: Positive for depression, anxiety, history of hypertension, hypothyroidism, history of Appendectomy, Benign Breast Growth. PERSONAL HISTORY: Used to smoke 1 Pack but now 10 cigarettes. denies drinking. FAMILY HISTORY: Not significant. ALLERGIES: The patient states that when she takes ASPIRIN it makes her stomach upset. HOME MEDICATIONS: Cymbalta 30 mg b.i.d., Seroquel 25 mg p.o. at bedtime. REVIEW OF SYSTEMS: All the systems were reviewed, positive mentioned in the history, others were negative. PHYSICAL EXAMINATION: VITAL SIGNS: Blood pressure 114/77, heart rate 107, temperature 97.0, pulse 84. HEAD: Normocephalic. EYES: Pupils normal. Conjunctivae normal. NOSE AND THROAT: Normal. NECK: JVP low. Carotid equal. THORAX: AP diameter normal. LUNGS: Clear. CARDIOVASCULAR: S1, S2. Soft systolic murmur. ABDOMEN: Soft, nontender, no organomegaly. Bowel sounds normal. EXTREMITIES: No clubbing, no cyanosis. LABORATORY DATA: EKG showed sinus tachycardia, low voltage, possible old inferior wall infarct, age undetermined. Chest x-ray, no active disease. DIAGNOSES: Sinus tachycardia, hypertension, rule out thyrotoxicosis. TSH is low and T4 is elevated, depression, anxiety. Regarding patient's 6 months ago stress test and echo were normal at [facility]. PLAN: The patient on diltiazem CD 180 daily, Lipitor 10 daily, levothyroxine 125 mcg p.o. daily, lisinopril 20 mg daily, will start on atenolol 12.5 mg daily for increased Heart Rate. and will repeat TSH, free T4, T3 in the morning. Continue other medications as ordered. We will monitor the heart rate with atenolol. If needed to be, we can increase the dose of atenolol. Told to stop smoking. Will follow with you. Flor Astudillo MD cc: [id number] TT: 02/08/2017 03:07:16 Confirmation # [id number] Dictation # [id number] shun WARREN
[2017-02-08 07:04] VITALS: BP 100/63; PULSE 77; RESP 20; TEMP 98
[2017-02-08] MEDS: Levothyroxine 125 MCG TAB PO SCH (08:29)
[2017-02-08 08:36] LABS: T3 1.04 ng/mL (0.97-1.69); THYROID STIMULATING HORMONE 0.73 mIU/mL (0.46-4.68)
[2017-02-08] MEDS: Pantoprazole 40 mg EC Tab PO SCH (08:36)
[2017-02-08 09:45] LABS: FREE T4 0.99 ng/dL (0.78-2.19)
--- NOTE | 2017-02-08 12:09 | PN ---
DATE: 02/08/2017 LOCATION: Room 508, bed 1. REASON FOR CONSULTATION: Hypertension, resting sinus tachycardia, hypothyroidism. HISTORY OF PRESENT ILLNESS: The patient is a 61-year-old female who is known to have hypertension, a nxiety, depression and psychosis, found to have sinus tachycardia. The patient denies any chest pain , shortness of breath, palpitation. The patient had stress test and echo in 06/2016 at [facility]. As per patient, this was told to be normal. The patient started on atenolol 12.5 mg yesterday to help with the sinus tachycardia. PHYSICAL EXAMINATION: VITAL SIGNS: Blood pressure 100/63, respirations 20, pulse 77, temperature 98.0. This morning, the heart rate was around 113. When I examined her, the heart rate was around 100. HEAD: Normocephalic. EYES: Pupils normal. Conjunctivae normal. NOSE AND THROAT: Normal. NECK: JVP low. Carotid equal. THORAX: AP diameter normal. LUNGS: Clear. CARDIOVASCULAR: S1, S2. ABDOMEN: Soft. No tenderness, no organomegaly. Bowel sounds normal. EXTREMITIES: No clubbing, no cyanosis. LABORATORY DATA: The patient's repeat T3 and free T4 and TSH today were done; they were normal. Oth er lab data was reported in our consult yesterday. DIAGNOSES: Sinus tachycardia, hypertension, hypothyroidism, anxiety, depression and psychosis. PLAN: The patient put on atenolol 25 mg daily to control the heart rate. The patient will continue the same dose of levothyroxine 125 mcg p.o. daily, Cardizem CD 180 p.o. daily, lisinopril 20 mg p.o. daily, atenolol 25 mg daily. The case discussed with Dr. Nithya Herbert. Will follow with you. Flor Astudillo MD cc: [id number] TT: 02/08/2017 12:09:32 Confirmation # [id number] Dictation # [id number] mn
--- NOTE | 2017-02-08 19:01 | PCM.PYCHDC ---
Mental Status Examination - Mental Status Examination Orientation: Person, Place, Situation, Time Memory: Intact Mood: Neutral Affect: Broad Speech: Appropriate Attention: WNL Concentration: WNL Association: WNL Fund of Knowledge: WNL Formal Thought Process: No Impairment Description of patient's judgement and insight: Pt has improved insight into mental and medical illness, pt was compliant with medications and unit rules and regulations, pt was going to groups, was calm, cooperative, socially appropriate, no behavioral incidents, no agitation, no aggression. Psychotic Thoughts and Behaviors: Pt denied v/a/t hallucinations, denied paranoid ideations, pt does not appear to be psychotic, and thought process is goal directed. Suicidal Ideation: No Current Homicidal Ideation?: No Plan: pt adamantly denied thoughts of harming self or others denied intent or plan. Discharge Summary - Discharge Note Reason for Hospitalization: pt was admitted to the psych unit for evaluation of AMS, possible brief psychotic episode, pt did not remember where she was, did not remember what was the name of her sisters, tried to run away from the restaurant, pt also was depressed, hopeless. Psychiatric History (includes Medical, Family, Personal Hx): see HPI Laboratory Data: Abnormal Lab Results 02/08/17 07:40 Free T4 0.99 Total T3 1.04 TSH 3rd Generation 0.73 Consultations:: List each consultation separately and include: 1. Reason for request. 2. Findings. 3. Follow-up Consultations: medical consult appreciated neurology consult appreciated cardiology consult called see notes for more detailed information patient is aware that she needs to follow up with her primary care physician within one week Patient is aware that she needs to be followed up by process artist as it was scheduled Patient is aware to follow-up with her primary associate director qa Patient is aware to follow up with her psychiatrist at [facility] Summary of Hospital Course include:: 1. Description of specific treatment plan utilized for patients during their course of treatmen. 2. Summarize the time- course for resolution of acute symptoms and/or regressed behaviors. 3. Describe issues identified and worked on during hospitalization. 4. Describe medication utilized. 5. Describe medical problems identified and treated. 6. Reassessment of suicide risk Summary of Hospital Course: shortly pt is 61yo Female, self reported h/o one psychiatric admission to [facility] in 2014 for brief psychotic episode, currently under care of [facility], self reported h/o depression and anxiety, was brought in by her sisters to ED yesterday because pt had episode when pt presented to be confused, did not know where she was, tried to run out of the restaurant. Pt needs to have further evaluation and stabilization, medications adjustment, collaterals. Pt was seen at the treatment team meeting, presented to have acceptable personal hygiene, fair ADLs. at the time of admission pt reported she "lost it, I had a nervous brake down" three years ago when her mother needed to have some text for carotid artery and her transportation company did not pick her up on time, pt said that she was agitated and "very angry, I did not feel well", in order to "cool down", pt drove to the coffee shop and "bought some coffee", then pt said "instead of screaming, yelling and let it out I inverted it inside of me". pt said after that pt had episodes when she would not remember where she is, does "staring at people", pt said she was brought to the [facility] and staid there for three days. "they did not diagnosed me with anything, just let me go", now pt is under care of her psychiatrist and therapist at [facility]. pt reported being compliant with medications. Pt said that she was stressed out lately, pt's mother in November 2016, since that time "I lost my purpose in life, I am not , I do not have kids", pt said she was feeling hopeless and helpless but denied thoughts of harming self or others. 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 Pt said yesterday "two of my sisters took me to the restaurant", pt said that she had one of "those moments, I just stared at them, I didn't know were I was, that episode was longer than usual" after pt was brought in to the ED. at the moment of the interview pt said "I feel normal myself". pt denied v/a/t hallucinations, denied paranoid ideation. pt reported to feel anxious, has panic attacks. denied using alcohol, denied drugs, but reported to smoke about 7cig a day, counseling provided, nicotine patch as well. Smoking Cessation Counseling: The patient was counseled as to the multiple risks to his/her health from continued use of tobacco products. It was explained that continuing to smoke may lead to multiple short and group home negative health consequences, including but not limited to mouth/esophageal /lung cancer, COPD, and heart disease. He/she states he/she understands these risks, and also understands the options and resources available to him/her to help him/her stop smoking. Nicotine replacement therapy, local hotlines, and local resources were discussed as viable options for helping him/her stop his/her tobacco use. The total time spent counseling the patient regarding tobacco cessation was 3 minutes past psych h/o: one admission three years ago for the similar episode, denied suicidal attempts. pt denied family h/o mental illness. pt reported to have HTN, dyslipidemia pharmacy was called quick check [phone] thorazine 100mg hs cymbalta 30mg po bid ambien 10mg po hs xanax 1mg po tid pt was seen by neurology team pt was seen by medical team ct of the head WNL 02/05/17 15:25 02/05/17 15:25 Lab Results 02/06/17 13:15: Free T4 1.32, Thyroxine (T4) 11.2 H 02/06/17 10:51: Fasting Glucose 159 H, Triglycerides 160, Cholesterol 164, LDL Cholesterol Direct 82, HDL Cholesterol 50, Free T4 1.24, TSH 3rd Generation 0.45 L 02/06/17 09:20: Ammonia < 9 L 02/05/17 17:00: Urine Color Yellow, Urine Appearance Clear, Urine pH 6.0, Ur Specific Jackson <= 1.005, Urine Protein Negative, Urine Glucose (UA) Negative, Urine Ketones Negative, Urine Blood Trace-lysed H, Urine Nitrate Negative, Urine Bilirubin Negative, Urine Urobilinogen 0.2, Ur Leukocyte Esterase Negative , Urine RBC 1 - 3, Urine WBC 0 - 2, Ur Epithelial Cells 3 - 4, Urine Bacteria Small, Urine Opiates Screen Negative, Urine Methadone Screen Negative, Ur Barbiturates Screen Negative, Ur Phencyclidine Scrn Negative, Ur Amphetamines Screen Negative, U Benzodiazepines Scrn Positive H, U Oth Cocaine Metabols Negative, U Cannabinoids Screen Negative 02/05/17 15:25: WBC 8.8, RBC 4.56, Hgb 14.2, Hct 41.9, MCV 91.9, MCH 31.1, MCHC 33.9, RDW 13.4, Plt Count 211, MPV 10.2, Gran % 72.2 H, Lymph % (Auto) 20.4 L, Morrison % (Auto) 4.9, Eos % (Auto) 1.9, Baso % (Auto) 0.6, Gran # 6.34, Lymph # 1.8 , Morrison # 0.4, Eos # 0.2, Baso # 0.05, Sodium 141, Potassium 4.2, Chloride 101, Carbon Dioxide 30, Anion Gap 14, BUN 13, Creatinine 1.0, Est GFR ( Amer) > 60, Est GFR (Non-Af Amer) 57, Random Glucose 112 H, Calcium 9.8, Total Bilirubin 0.5, AST 29, ALT 45, Alkaline Phosphatase 85, Total Protein 7.1, Albumin 4.1, Globulin 3.0, Albumin/Globulin Ratio 1.4, Salicylates < 1 L, Acetaminophen < 10.0 L, Alcohol, Quantitative < 10 Vital Signs Temp Pulse Resp BP Pulse Ox 02/06/17 09:30 102 H 108/61 02/06/17 09:05 102 H 108/61 02/06/17 07:25 97.3 F L 102 H 20 108/61 02/05/17 22:00 98.5 F 107 H 20 144/90 100 02/05/17 21:52 12 02/05/17 21:01 90 16 114/63 96 02/05/17 18:25 98 H 18 128/74 95 02/05/17 17:16 108 H 20 117/90 96 02/05/17 17:09 107 H 117 H 96 02/05/17 15:27 16 117/78 95 02/05/17 15:19 98 H 18 115/69 95 02/05/17 14:01 98.3 F 106 H 18 117/71 95 02/05/17 13:51 98.3 F 106 H 18 117/71 96 patient was stabilized on the following medications: thorazine 100mg hs for psychosis (pt was on it) cymbalta was weaned off celexa was increased slowly to 20mg xanax 1mg po tid for anxiety was continued ambien 10mg hs for insomnia was continued patient tolerated medications well, no side effects observed or reported, aims 0 , no EPS. Patient was seen by neurologist him not further workup recommended Patient was seen by medical team consultation appreciated Patient was seen by cardiology team no further workup was recommended patient was tachycardiac patient was started on the better blockers. Over the course of this hospitalization pt was attending groups, pt also had medication management, had therapeutic milieu. Overall pt improved significantly, pt's affect became brighter, pt was less depressed, has realistic future oriented plans, pt also does not appear to be psychotic, or anxious, pt was socially appropriate, no behavioral issues, pts insight improved as well and soon pt deemed to be ready for discharge. At the time of the discharge pt denied been depressed, denied thoughts of harming self or others, denied psychotic symptoms, and pt does not appeared to be psychotic, denied been anxious, was considered to pose no threat to self or others, will be following up at [facility], information about follow up appointment, time and address provided to the pt, it is patient responsibility to follow up with outpatient clinic, PMD as well as specialists ( see SW note for more detailed information). In case pt will need to obtain results of studies pending at discharge pt was provided with contact information of Psychiatric Inpatient unit [phone] as well as Medical Record Department [phone]. Nicotine patch was offered Counseling about smoking cessation provided pt was provided with prescriptions for all of medications (please see medication reconciliation form) Pt was educated about safety plan in case of worsening of symptoms or in case of suicidal or homicidal ideation call 911 or go to the nearest ER, also was educated to take meds as prescribed and stay away from drugs, pt verbalized understanding. - Diagnosis (1) Brief psychotic disorder Status: Acute (2) Unspecified psychosis Status: Acute - Final Diagnosis (DSM 5) Condition upon Discharge: FAIR Disposition: HOME/ ROUTINE Follow-up Treatment Plan: At the time of the discharge pt denied been depressed, denied thoughts of harming self or others, denied psychotic symptoms, and pt does not appeared to be psychotic, denied been anxious, was considered to pose no threat to self or others, will be following up at [facility], information about follow up appointment, time and address provided to the pt, it is patient responsibility to follow up with outpatient clinic, PMD as well as specialists ( see SW note for more detailed information). In case pt will need to obtain results of studies pending at discharge pt was provided with contact information of Psychiatric Inpatient unit [phone] as well as Medical Record Department [phone]. Nicotine patch was offered Counseling about smoking cessation provided pt was provided with prescriptions for all of medications (please see medication reconciliation form) Pt was educated about safety plan in case of worsening of symptoms or in case of suicidal or homicidal ideation call 911 or go to the nearest ER, also was educated to take meds as prescribed and stay away from drugs, pt verbalized understanding. Prescriptions/Medication Reconciliation: Zolpidem [Ambien] 10 mg PO HS PRN #14 tab PRN Reason: Insomnia diltiaZEM CD [Cardizem CD] 180 mg PO DAILY #7 cap Atorvastatin [Lipitor] 10 mg PO DIN #7 tab Nicotine 14 mg/24 hr [Nicoderm CQ] 1 patch TD DAILY #14 patch Pantoprazole [Protonix EC Tab] 40 mg PO DAILY #7 ect Levothyroxine [Synthroid] 125 mcg PO ACB #7 tab Atenolol [Tenormin] 25 mg PO DAILY #7 tab chlorproMAZINE [Thorazine] 100 mg PO HS #14 tab Cholecalciferol [Vitamin D 1000 IU] 2,000 iu PO DAILY #14 tab ALPRAZolam [Xanax] 1 mg PO 0800,1500,2200 #45 tab Lisinopril [Zestril] 20 mg PO DAILY #7 tab Citalopram [celEXA] 20 mg PO DAILY #14 tab - Smoking Cessation Smoking Cessation Medication prescribed: Yes - Antipsychotic Medications Pt discharged on 2 or more routine antipsychotic medications: No
[2017-02-09 17:47] LABS: GLYCOMARK(R) 22.8 mcg/mL (7.5-28.4)
--- NOTE | 2017-03-07 16:00 | PN ---
DATE: 02/08/2017 The patient is seen standing up in the hallway. The patient is walking around. The patient is alert, awake, responsive. Overnight nurse's notes were reviewed. The patient denies any anxiety, depression. Denies any suicidal or homicidal ideation. Denied any auditory or visual hallucinations. The patient stayed calm. The patient was found to be mildly depressed, but socializing. The patient attended group and was compliant with medication. PHYSICAL EXAMINATION: VITAL SIGNS: T-max 98, heart rate 77, blood pressure 100/63, respirations 20, O2 sat is 96%-100%. HEAD: Normocephalic, atraumatic. HEENT: Shows pinkish, pale conjunctivae, anicteric sclerae, no oropharyngeal lesion. NECK: No neck rigidity. CHEST: Symmetrical. LUNGS: Shows no rales, crackles, or wheezing. ABDOMEN: Morbidly obese. GENITALIA: Female. RECTAL: Deferred. EXTREMITIES: Shows no pitting edema, no calf tenderness, no Homans sign. Chronic leg swelling, nonpitting swelling noted. NEUROLOGIC: The patient is alert, awake, oriented x 3. Cranial nerves II-XII intact. MUSCULOSKELETAL: Shows body mass index of almost 40. VASCULAR: Palpable pulses. PSYCHIATRIC: As per psychiatry notes. DIAGNOSTICS: Vitamin D level is 29. Repeat thyroid panel was reviewed. Holter monitor shows sinus rhythm, sinus tachycardia. Average heart rate 93 beats per minute. IMPRESSION AND PLAN: 1. Acute exacerbation of anxiety, depression, psychosis with episodic confusion and forgetfulness, resolved. 2. Asymptomatic tachycardia, probably secondary to subclinical hypothyroidism, secondary to high Synthroid dose use. 3. Hypertension. 4. Morbid obesity with elevated body mass index of 40. 5. History of hypothyroidism, history of hypertension, history of prediabetes, history of morbid obesity, history of nicotine addiction, history of granulocytosis. 6. Microscopic hematuria, bacteriuria. 7. History of anxiety. 8. Granulocytosis. 9. Hypovitaminosis D. 10. Prediabetes with hemoglobin A1c of 6.4. 11. Psychosis, anxiety, depression. 12. Insomnia. 13. Transient acute stress reaction. 14. Dyslipidemia, hypertension, hypothyroidism, nicotine dependence. 15. Insomnia. 16. Dyslipidemia. 17. Anxiety disorder. 18. Hypertension. 19. Granulocytosis. 20. Hypovitaminosis D. 21. Left ventricular ejection fraction of 60%. 22. Concentric left ventricular hypertrophy. 23. Psychotic disorder. 24. Unspecified psychosis. 1. Acute exacerbation of anxiety, depression, psychosis with episode of confusion and forgetfulness (resolving). 2. Asymptomatic tachycardia probably secondary to subclinical hyperthyroidism secondary to high Synthroid dose. 3. Hypertension. 4. Morbid obesity. 5. History of hypertension, hypothyroidism, history of prediabetes, history of morbid obesity, history of nicotine addiction. 6. Granulocytosis. 7. Microscopic hematuria, bacteriuria. 8. History of anxiety. 9. Morbid obesity with elevated body mass index of 40. 10. Granulocytosis. 11. Hypovitaminosis D. 12. Prediabetes with hemoglobin A1c of 6.4. 13. History of psychosis, anxiety and depression. 14. Questionable insomnia. 15. Transient acute stress reaction. 16. History of dyslipidemia, hypertension, hypothyroidism, nicotine dependence. 1. Acute exacerbation of anxiety, depression, and psychosis with episode of confusion and forgetfulness. 2. Hypertension. 3. Tachycardia. 4. Morbid obesity. 5. History of hypertension, hypothyroidism, history of prediabetes, history of morbid obesity, history of nicotine dependence. 6. Granulocytosis. 7. History of prediabetes. 8. Microscopic hematuria and bacteriuria. 9. History of obesity. 10. History of anxiety, history of hypertension, history of hypothyroidism, history of dyslipidemia, history of depression. The patient is to be discharged today as per psychiatry. DISCHARGE MEDICATIONS: 1. Ambien 10 mg at bedtime p.r.n. 2. Cardizem-CD 180 mg daily. 3. Lipitor 10 mg daily. 4. Nicotine patch 14 mg daily. 5. Protonix 40 mg daily. 6. Synthroid 125 mcg daily. 7. Tenormin 25 mg daily. 8. Thorazine 100 mg at bedtime. 9. Vitamin D3 2000 units daily. 10. Xanax 1 mg 3 times a day. 11. Zestril 20 mg daily. 12. Celexa 20 mg daily. 13. Tenormin 25 mg daily. 14. Xanax 1 mg 3 times a day. 15. Thorazine 100 mg at bedtime. 16. Vitamin D3 2000 units daily. 17. Celexa 20 mg daily. 18. Cardizem-CD 180 mg daily. 19. Synthroid 125 mcg daily. 20. Zestril 20 mg daily. 21. Nicotine patch 14 mg daily. 22. Protonix 40 mg daily. 23. Ambien 10 mg at bedtime. The patient is to be followed up with [facility]. The patient is to be discharged. Dictated and electronically signed, not read. Warren Leung MD cc: [id number] TT: 02/08/2017 16:00:07 Confirmation # [id number] Dictation # [id number] [id number]
== END 2017-02-08 15:21 | disposition home or self-care (01) | DRG 885 ==
LOC: ED 13:51 → ERH 20:26 → PSYC 21:38
PROVIDERS: ADMIT Psychiatry & Neurology Psychiatry; ATTEND Psychiatry & Neurology Psychiatry
DX: F23 Brief psychotic disorder (principal); I11.9 Hypertensive heart disease without heart failure; Z68.41 Body mass index [BMI] 40.0-44.9, adult; E66.01 Morbid (severe) obesity due to excess calories; E78.5 Hyperlipidemia, unspecified; F41.1 Generalized anxiety disorder; E03.9 Hypothyroidism, unspecified; F32.9 Major depressive disorder, single episode, unspecified; R73.03 Prediabetes; F17.210 Nicotine dependence, cigarettes, uncomplicated; R31.29 Other microscopic hematuria; E55.9 Vitamin D deficiency, unspecified; R00.0 Tachycardia, unspecified; Z88.6 Allergy status to analgesic agent